=== PATIENT | female | born 1990 | race Caucasian/White ===

== ENCOUNTER 2019-05-12 22:40 | Inpatient (IN) | payer BC ==
[2019-05-12] MEDS ORDERED: Lactated Ringers 1000 ML Bag* 1,000 ML IV ONE (23:03)
[2019-05-12] MEDS ORDERED: Buffered Lidocaine 1% SYRIN* 1 ML/SYRINGE INTRADERM ONE (23:03)
--- NOTE | 2019-05-12 23:13 | HP ---
General Information - Reason for Visit IUP at 40-05/25 in labor - General Information Maternal Age: 29 Grav: 1 Para: 0 SAB: 0 IEA: 0 Estimated Due Date: 05/09/19 Determined By: LMP - confirmed by 8 week sono Gestational Age in Weeks/Days: 40-7 Maternal Blood Type and Rh: O Positive - Results this Serology/RPR Result: Non-Reactive Rubella Result: Immune HBsAg Result: Negative HIV Result: Negative GBS Culture Result: Negative Past Medical History Delivery History: See Records Delivery History Comment: Primip Pertinent Past Medical History: See Records Past Medical History Comment: PCOS, Fibrocystic disease of the breast Pertinent Past Surgical History: See Records Past Surgical History Comment: 2005 Oral surgery Pertinent Family History: See Records Family History Comment: Father: Melanoma Mother: Osteoporosis, Vertigo Brother: DM Sister: Lattice degeneration, abnormal paps PGF: , MD MGM: DM MGF: Alzheimer's Disease, DM P.Aunt: Parkinson's Disease - Antepartal Records Antepartal Records: Reviewed, Complicated by: - Abnormal Pap: 2018 Colpo showed LSIL Review of Systems Constitutional: Uncomfortable - with UCs CV Complaint: No Respiratory: Shortness of Breath: No Gastrointestinal: No Nausea/Vomiting, Normal Bowel Movement Genitourinary: Leaking Fluid - since 2029 on 05/12/2019, No Dysuria, No Bleeding Musculoskeletal: Contractions Neurological: No Headache, No Visual Changes Movement: Normal Exam Allergies/Adverse Reactions: Allergies No Known Allergies Allergy (Verified 08/04/14 17:47) BP 120/70 HR 61 RR 22 T 97 SpO2 100% on RA - Measurements Height: 5 ft 5 in Weight: 225 lb Body Mass Index (BMI): 37.4 Pre- Weight: 169 lb - Exam Breast: Breast Exam Deferred CVA: No CVA Tenderness Extremities: No Edema Heart: Normal Rhythm/Heart Sounds HEENT: No Significant Findings Lungs: Clear Bilaterally Rectal: Rectal Exam Deferred Reflexes: DTR 2+ Thyroid: No Thyromegaly - Abdominal Exam Abdomen Exam: Non-Tender - Ultrasound/Biophysical Profile Ultrasound Status: Not Done Targeted Exam Findings See L&D Outpatient Visit Provider Note for Findings: N/A Estimated Weight: EFW 7.5lbs by Joellen Cervical Exam: 4cm Effacement: 90% Station: -1 Presenting Part: Vertex - per RN Membrane Status: Leaking Amniotic Fluid Evaluation: Gross Rupture Sterile Speculum Exam: Not done Bleeding/Discharge: Bloody Show EFM Findings - External Monitor Findings Baseline Heart Rate: 120 External Monitor Findings: Accelerations Present, No Pattern of Variable or Late Decelerations, Variability Moderate, Baseline Stable External Monitor Findings Comment: No evidence of metabolic acidemia Contractions: Regular, Moderate Contraction Frequency: q 2-3 min Assessment/Plan - Assessment IUP at 40-3/7 in labor No evidence of metabolic acidemia Pt requesting pain relief - Plan Plan: Admit - Anticipate Vaginal Delivery Plan Comment: Pt consents to IV placement and labs. Will page anesthesia for consult. Anticipate normal progression in labor - Date/Time of Admission Date of Admission: 05/12/19 Time of Admission: 23:05
[2019-05-12 23:28] LABS: ABS Basophils 0.1 10^3/ul (0-0.2); ABS Eosinophils 0.1 10^3/ul (0-0.6); ABS Lymphocytes 1.4 10^3/ul (1.0-4.8); ABS Monocytes 0.7 10^3/ul (0-0.8); ABS Neutrophils 9.8 10^3/ul (1.5-7.7); Eosinophil % 0.7 %; Hematocrit 39 % (35-47); Hemoglobin 13.5 g/dL (12.0-16.0); Lymphocyte % 11.4 %; Mean Corpuscular HGB Conc 34 g/dL (31-36); Mean Corpuscular Hemoglobin 30 pg (27-31); Mean Corpuscular Volume 88 fL (80-97); Mean Platelet Volume 8.1 fL (7.4-10.4); Nucleated Red Blood Cells % 0.1; Platelet Count 267 10^3/uL (150-450); Red Blood Count 4.47 10^6 /uL (3.70-4.87); Red Cell Distribution Width 13 % (10-15)
[2019-05-12 23:32] LABS: Urine Benzodiazepine Screen None Detected (None Detect); Urine Opiates Screen None Detected (None Detect)
[2019-05-12] MEDS ORDERED: OBEPIDURAL* 250 ML EPIDURAL ONE (23:42)
[2019-05-13] MEDS ORDERED: Sodium Citrate/Citric Acid* 15 ML UDC PO PRN (00:22)
[2019-05-13] MEDS ORDERED: Phenylephrine 40 MCG/ML SYRINGE IV PUSH PRN ×2 (00:22)
[2019-05-13] MEDS ORDERED: Lactated Ringers 1000 ML Bag* 1,000 ML IV ONE (00:22)
--- NOTE | 2019-05-13 00:38 | PN ---
Progress Note - Progress Note Date of Service: 05/13/19 Note: S: Pt is comfortable s/p CEI placement O: 93/61 HR 75 FHT: Baseline 115bpm. Moderate variability. +Accels. No decels UCs q 1-3 min VE 9cm/100%/vtx +1 A: IUP at 40-4/7 in active labor No evidence of metabolic acidemia P: Enc rest. Close monitoring of maternal/ status. Anticipate trial of pushing soon
[2019-05-13] MEDS ORDERED: Lactated Ringers 1000 ML Bag* 1,000 ML IV SCH ×2 (01:00→04:00)
[2019-05-13] MEDS ORDERED: OBEPIDURAL* 250 ML EPIDURAL SCH (01:00)
[2019-05-13] MEDS ORDERED: Dibucaine 1% 28.35 GM TUBE PR PRN (03:13)
[2019-05-13] MEDS ORDERED: Witch Hazel PAD* JAR TOPICAL PRN (03:13)
--- NOTE | 2019-05-13 03:13 | PROCNOTE ---
[facility] OB: Delivery Note - Delivery A Date of : 05/13/19 Time of : 02:53 [place] Sex: Male - "[place]" Score 1 Minute: 9 Score 5 Minutes: 9 Gestational Age in Weeks and Days at Delivery: 40 Weeks and 4 Days Delivery Method: Spontaneous Vaginal Labor: Spontaneous Did Patient attempt ?: N/A, No Previous Amniotic Fluid: Clear Estimated Blood Loss: 300 Anesthesia/Analgesia: CEI for Labor - placed by Dr. Mccrary Delivered By: Kira Rosa - Nursery Level of Nursery: Regular/Bedside - Perineum Perineal Injury: Abrasion Only - Not Repaired - R sublabial abrasion. Hemostatic and not repaired. Perineum intact Perineal Repair: None - Additional Delivery Notes Additional Delivery Notes: Wanda was admitted in active labor with expected progression to complete. Length of active phase 6 hours, 26 min. Pushed x 23 minutes. liveborn male. Slow, controlled delivery of head. AGNES to ROT. Loose nuchal cord x 1. Shoulders followed easily. Cord reduced after delivery of shoulders. Infant vigorous with spontaneous cry. HR>110bpm. Apgars 9/9. Delivered to maternal abdomen. Cord clamped x 2 and cut by FOB when pulsations ceased. Spontaneous delivery intact placenta. Membranes complete. Fundus firm to massage and minimal bleeding noted. Perineum intact with a right sublabial abrasion that was hemostatic and not repaired. EBL 300mL. At time of note mother and in stable condition. Planning to breast feed.
[2019-05-13] MEDS ORDERED: Oxytocin in LR* 20 UNITS/1,000 ML BAG IVPB SCH (03:27)
[2019-05-13] MEDS ORDERED: Oxytocin in LR* 20 UNITS/1,000 ML BAG IVPB ONE (03:27)
[2019-05-13] MEDS: Ibuprofen TAB* 600 MG PO SCH ×4 (04:09→20:43)
[2019-05-13] MEDS: Docusate CAP* 100 MG PO SCH ×3 (08:50→20:36)
[2019-05-13] MEDS: Acetaminophen TAB* 325 MG PO PRN ×2 (08:50→20:36)
[2019-05-14] MEDS: Ibuprofen TAB* 600 MG PO SCH ×4 (03:14→23:07)
[2019-05-14 07:12] LABS: ABS Basophils 0.1 10^3/ul (0-0.2); ABS Eosinophils 0.2 10^3/ul (0-0.6); ABS Lymphocytes 1.8 10^3/ul (1.0-4.8); ABS Monocytes 0.5 10^3/ul (0-0.8); ABS Neutrophils 7.1 10^3/ul (1.5-7.7); Hematocrit 35 % (35-47); Hemoglobin 11.9 g/dL (12.0-16.0); Lymphocyte % 18.5 %; Mean Corpuscular HGB Conc 34 g/dL (31-36); Mean Corpuscular Hemoglobin 30 pg (27-31); Mean Corpuscular Volume 89 fL (80-97); Mean Platelet Volume 7.5 fL (7.4-10.4); Platelet Count 211 10^3/uL (150-450); Red Blood Count 3.94 10^6 /uL (3.70-4.87); Red Cell Distribution Width 13 % (10-15); White Blood Count 9.7 10^3/uL (3.5-10.8)
[2019-05-14] MEDS: Acetaminophen TAB* 325 MG PO PRN (08:30)
[2019-05-14] MEDS: Docusate CAP* 100 MG PO SCH ×3 (08:30→20:21)
[2019-05-14] MEDS ORDERED: Ferrous Gluconate TAB* 324 MG TAB PO SCH (09:00)
[2019-05-15] MEDS: Ibuprofen TAB* 600 MG PO SCH ×2 (08:30→08:36)
[2019-05-15] MEDS: Docusate CAP* 100 MG PO SCH (08:36)
[2019-05-15 08:56] VITALS: BP 121/71
== END 2019-05-15 13:56 | disposition home or self-care (01) | DRG 560 ==
LOC: MCHOBOUT 22:40 → MCHOB 23:11
PROVIDERS: ADMIT Midwife; ATTEND Midwife
PROC: 10E0XZZ Delivery of Products of Conception, External Approach (ICD-10-PCS; principal; 2019-05-13)
DX: O48.0 Post-term pregnancy (principal); Z37.0 Single live birth; Z3A.40 40 weeks gestation of pregnancy; O70.0 First degree perineal laceration during delivery; O99.334 Smoking (tobacco) complicating childbirth; F17.210 Nicotine dependence, cigarettes, uncomplicated; O69.81X0 Labor and delivery complicated by cord around neck, without compression, not applicable or unspecified
CPT/HCPCS: 36415; 80307; 84112; 85025; 86850; 86900; 86901; A9270-GY; G0480